=== PATIENT | female | born 1945 | race Two or more races ===

== ENCOUNTER → 2017-02-03 | Outpatient (CLI) | payer MEDICARE, MEDICAID ==
[~2017-02-03] MED LIST: ATOR10TA52 PO; LISI10TA6 PO; METF-372 PO; RANI150C11 PO
[2017-02-03 08:28] LABS: Basophils # (auto) 0 uL; Basophils % (auto) 0.4 % (0.0-2.0); CONDITION Y; Eosinophils # (auto) 0.3 uL; Eosinophils % (auto) 4.4 % (0.0-7.0); Hematocrit 42.7 % (36.0-46.0); Hemoglobin 14.3 g/dL (12.2-16.2); Lymphocytes # (auto) 2.8 uL; Lymphocytes % (auto) 41.7 % (10.0-50.0); Mean Corpuscular Hemoglobin 29.4 pg (28.0-32.0); Mean Corpuscular Hgb Conc. 33.4 g/dL (32.0-36.0); Mean Corpuscular Volume 87.9 fL (80.0-100.0); Mean Platelet Volume 9.5 fL (7.4-10.4); Monocytes # (auto) 0.5 uL; Monocytes % (auto) 7.3 % (0.0-12.0); Neutrophils # (auto) 3.1 uL; Neutrophils % (auto) 46.2 % (37.0-80.0); Platelet Count (auto) 276 10^3/uL (140-450); Red Cell Distribution Width 13.8 % (11.6-16.0); White Blood Cell 6.7 10^3/uL (4.4-10.8)
[2017-02-03 08:48] LABS: Urine Bilirubin Negative (Negative); Urine Blood Negative /uL (Negative); Urine Color Yellow (Yellow); Urine Glucose TRACE mg/dL (Normal); Urine Ketone TRACE (Negative); Urine Mucus FEW (None Seen); Urine Nitrite Negative (Negative); Urine RBC 4 /hpf (0 - 4); Urine Squamous Epithelial Cell FEW /hpf (<5); Urine Urobilinogen Normal (Negative)
[2017-02-03 08:51] LABS: Albumin 3.3 g/dL (3.4-5.0); BUN/Creatinine Ratio 27.7; Bilirubin, Total 0.5 mg/dL (0.2-1.0); Calcium 9.3 mg/dL (8.5-10.1); Potassium 4.2 mmol/L (3.5-5.1); Total Protein 7.4 g/dL (6.4-8.2)
== END | disposition home or self-care (01) ==
LOC: LAB 07:23
PROVIDERS: ATTEND Internal Medicine
DX: I10 Essential (primary) hypertension (principal); E78.2 Mixed hyperlipidemia; E11.9 Type 2 diabetes mellitus without complications; N39.0 Urinary tract infection, site not specified
CPT/HCPCS: 36415; 80053; 80061; 81001; 82043; 83036; 84443; 85025

== ENCOUNTER 2021-05-29 15:19 | Emergency (ER) | payer OTHER, MEDICAID ==
[~2021-05-29] VITALS: Ht 152.4 cm; Wt 67.1 kg
[~2021-05-29 15:19] MED LIST changes: +LISI-716 PO; -LISI10TA6 PO
[2021-05-29 15:21] VITALS: BP 132/65
[2021-05-29] MEDS ORDERED: FUROSEMIDE 20 MG/2 ML VIAL IV ONE (16:30)
[2021-05-29 17:08] LABS: Basophils # (auto) 0 10 ^3/uL (0-0.2); Basophils % (auto) 0.5 % (0.0-2.0); Eosinophils # (auto) 0.3 10 ^3/uL (0-0.8); Eosinophils % (auto) 3.1 % (0.0-7.0); Hematocrit 41.3 % (36.0-46.0); Hemoglobin 13.5 g/dL (12.2-16.2); Lymphocytes # (auto) 2.6 10 ^3/uL (0.4-5.4); Lymphocytes % (auto) 27.8 % (10.0-50.0); Mean Corpuscular Hemoglobin 30.2 pg (28.0-32.0); Mean Corpuscular Hgb Conc. 32.5 g/dL (32.0-36.0); Mean Corpuscular Volume 92.6 fL (80.0-100.0); Monocytes # (auto) 0.5 10 ^3/uL (0-1.3); Monocytes % (auto) 5.5 % (0.0-12.0); Neutrophils # (auto) 5.9 10 ^3/uL (1.6-8.6); Neutrophils % (auto) 63.1 % (37.0-80.0); Nucleated Red Blood Cells % 0.1 %; Red Blood Cells 4.46 10^6/uL (4.0-5.20); Red Cell Distribution Width 15.5 % (11.8-14.3); White Blood Cell 9.4 10^3/uL (4.4-10.8)
[2021-05-29 17:24] LABS: Albumin 2.5 g/dL (3.4-5.0); Calcium 8.2 mg/dL (8.5-10.1); Potassium 4.1 mmol/L (3.5-5.1)
[2021-05-29 17:30] LABS: BUN/Creatinine Ratio 26.1; Bilirubin, Total 0.5 mg/dL (0.2-1.0); Total Protein 6.8 g/dL (6.4-8.2)
== END 2021-05-29 20:51 | disposition left against medical advice (07) ==
LOC: ER 15:19
DX: I11.0 Hypertensive heart disease with heart failure (principal); I50.9 Heart failure, unspecified; E11.9 Type 2 diabetes mellitus without complications; Z98.51 Tubal ligation status
CPT/HCPCS: 36415; 71045; 80053; 83880; 84484; 85025; 93005; 99291